=== PATIENT | male | born 1985 | race Caucasian/White ===

== ENCOUNTER 2017-03-28 05:56 | Emergency (ER) | payer SELFPAY ==
--- NOTE | 2017-03-28 06:40 | ED Physician Chart ---
ED Chief Complaint/HPI - Patient Information Date Seen:: 03/28/17 Time Seen:: 06:00 Chief Complaint:: diffuse rash History of Present Illness:: several days prednisone antihistamine stopped, rash returned, patient has unused prednisone and antihistamine Allergies:: Allergies Allergy/AdvReac Type Severity Reaction Status Date / Time No Known Allergies Allergy Verified 03/28/17 06:18 Vitals:: Vital Signs - 8 hr 03/28/17 03/28/17 06:00 06:29 Temp 98.0 F 98.2 F HR 95 78 RR 18 18 BP 152/82 147/75 O2 Sat % 97 97 Historian:: Patient Review:: Nurse's Note Reviewed ED Review of Systems - Review of Systems General/Constitutional: No fever Skin: Rash (minimally urticarial rash ) Head: No headache Eyes: No loss of vision ENT: No nasal drainage Neck: No neck pain Cardio Vascular: No chest pain Pulmonary: No SOB, No cough GI: No vomiting G/U: No dysuria Musculoskeletal: No bone or joint pain Endocrine: No polyuria Psychiatric: No prior psych history Hematopoietic: No bruising Allergic/Immuno: No angioedema Neurological: No syncope ED Past Medical History - Past Medical History Obtainable: Yes Past Medical History: No significant medical hx Family History: None Social History: Non Smoker Surgical History: None Psychiatricy History: None Medication: Reviewed Family Medical History - Family Member Mother Ethnicity: Living Status: Still Living Hx Family Hypertension: Yes ED Physical Exam - Physical Examination General/Constitutional: Awake, Well-developed, well-nourished, Alert Other Gen/Cons comments:: itching 2/5 Head: Atraumatic Eyes: Lids, conjuctiva normal Skin: Well hydrated Other Skin comments:: diffuse slightly raised red ENMT: External ears, nose nl Neck: Nontender Respiratory: Nl effort/Exclusion Other Respiratory comments:: no stridor Cardio Vascular: RRR, No murmur, gallop, rubs, NL S1 S2 GI: No tenderness/rebounding/guarding : No CVA tenderness Extremities: No tenderness or effusion, Full ROM Neuro/Psych: Alert/oriented Misc: Normal back ED Labs/Radiology/EKG Results - Lab Results Comments:: rash allergic and not hematological ED Assessment - Assessment This condition life threatening/high prob of deterioration: No ED Septic Shock - . Is Septic Shock (SBP<90, OR Lactate>4 mmol\L) present?: No - <6hrs of presentation: Vital Signs: Vital Signs - 8 hr 03/28/17 03/28/17 06:00 06:29 Temp 98.0 F 98.2 F HR 95 78 RR 18 18 BP 152/82 147/75 O2 Sat % 97 97 ED Reassessment (Disposition) - Reassessment Reassessment:: Patient given signs of anaphylaxis and indications to return to ER if symptoms worsen Reassessment Condition:: Unchanged - Diagnosis Diagnosis:: rash contact dermatitis - Aftercare/Follow up Instructions Aftercare/Follow-Up Instructions:: Refer to Discharge Instructions Medication Prescribed:: Tagamet 300 bid take prednisone and other med see md that prescribed original prescription, instructed patient to try to find initiating factors - Patient Disposition Discharge/Transfer:: Home ED Discharge Plan - Patient Disposition Admit/Discharge/Transfer: PT DISCHARGED HOME Condition at Disposition: Stable Instructions: Rash Additional Instructions: FOLLOW UP W/ PMD ON WEDNESDAY, COMPLY WITH PRESCRIBED MEDICATION, GO BACK TO EMERGENCY ROOM IF SYMPTOMS WORSEN.
== END 2017-03-28 06:30 | disposition home or self-care (01) ==
LOC: ER 05:56
DX: L25.9 Unspecified contact dermatitis, unspecified cause (principal)
CPT/HCPCS: Z7502